=== PATIENT | male | born 1980 | race Caucasian/White ===

== ENCOUNTER → 2018-07-07 | Outpatient (CLI) | payer BC ==
--- NOTE | 2018-07-07 17:32 | XR ---
EXAMINATION TYPE: XR ankle complete LT DATE OF EXAM: 07/07/2018 COMPARISON: None HISTORY: Ankle pain TECHNIQUE: Three-view left ankle FINDINGS: Soft tissue swelling is over the lateral malleolus. No acute fractures or dislocations are evident. Ankle mortise is intact. Calcaneal and Achilles tendon heel spur is present. IMPRESSION: 1. Soft tissue swelling lateral malleolus. 2. Follow-up exams can be performed 7-10 days from acute trauma for continued pain.
== END ==
LOC: RADXRYALE 12:39
PROVIDERS: ATTEND Internal Medicine
DX: M79.89 Other specified soft tissue disorders (principal)